=== PATIENT | male | born 1950 | race African-American/Black ===

== ENCOUNTER 2018-04-08 19:46 | Inpatient (IN) | payer OTHER ==
[~2018-04-08] VITALS: Ht 175.3 cm; Wt 86.6 kg
[~2018-04-08 19:46] MED LIST: ASACOL HD800 MG PO; CIPRO500 MG PO; DELZICOL400 MG; FLAGYL500MG PO; INTESTINEX1 CA1 PO; PREDNISONE10 MG; PREDNISONE20 MG PO
[2018-04-14] MEDS ORDERED: DELZICOL400 M1 PO (15:24)
[2018-04-14] MEDS ORDERED: DELTASONE20 MG PO (15:26)
== END 2018-04-14 16:15 | disposition home or self-care (01) | DRG 387 ==
LOC: ER 19:46 → MEDI 04-09 14:11 → SEC-K 04-09 14:11 → MEDI 04-10 18:53
DX: K51.511 Left sided colitis with rectal bleeding (principal); M21.371 Foot drop, right foot; E11.9 Type 2 diabetes mellitus without complications; I10 Essential (primary) hypertension